=== PATIENT | female | born 1950 | race Caucasian/White ===

== ENCOUNTER 2018-03-16 14:07 | Emergency (ER) | payer MEDICARE, MEDICAID ==
[~2018-03-16] VITALS: Ht 152.4 cm; Wt 40.7 kg
[~2018-03-16 14:07] MED LIST: BENZ1TAB10 PO; BUPR-93 PO; DIPH50CA20 PO; FLUO-126 PO; LORA1TAB3 PO; OLAN20TA2 PO; PERP4TAB10 PO
[2018-03-16] MEDS ORDERED: ASPI-556 PO (16:11)
[2018-03-16] MEDS ORDERED: QUET100T PO (16:11)
[2018-03-16] MEDS ORDERED: TRAZ-220 PO (16:11)
[2018-03-16] MEDS ORDERED: CARB1TAB42 PO (16:11)
[2018-03-16] MEDS ORDERED: DiphenhydrAMINE HCL 50 MG/ML VIAL IVP ONE (16:30)
[2018-03-16] MEDS ORDERED: BENZTROPINE MESYLATE 1 MG/ML 2 ML VIAL IVP ONE (16:30)
[2018-03-16 16:40] LABS: GLUCOSE,POINT OF CARE 97 MG/DL (70-110)
[2018-03-16] MEDS ORDERED: LORazepam 2 MG/ML VIAL IVP ONE (16:45)
[2018-03-16 19:24] VITALS: BP 118/69
== END 2018-03-16 19:25 | disposition home or self-care (01) ==
LOC: EMS 14:07
DX: G24.9 Dystonia, unspecified (principal); J45.909 Unspecified asthma, uncomplicated; F32.9 Major depressive disorder, single episode, unspecified; Z79.82 Long term (current) use of aspirin
CPT/HCPCS: 82948; 82962; 96374; 96375; 99283; J0515; J1200; J2060

== ENCOUNTER 2018-09-22 16:36 | Emergency (ER) | payer MEDICARE, MEDICAID ==
[~2018-09-22] VITALS: Ht 152.4 cm; Wt 53.6 kg
[~2018-09-22 16:36] MED LIST changes: +ASPI-556 PO; -BENZ1TAB10 PO; -BUPR-93 PO; +CARB1TAB42 PO; -DIPH50CA20 PO; -LORA1TAB3 PO; -OLAN20TA2 PO; -PERP4TAB10 PO; +QUET100T PO; +TRAZ-220 PO
[2018-09-22] MEDS ORDERED: ACETAMINOPHEN 325 MG TABLET PO ONE (19:15)
[2018-09-22 19:37] LABS: BASOPHILS % (AUTO) 1.1 % (0.0-2.0); EOSINOPHILS % (AUTO) 0.9 % (1.0-6.0); HEMATOCRIT 40.2 % (36-46); HEMOGLOBIN 13.3 g/dL (12.0-16.0); LYMPHOCYTES # (AUTO) 1.6 K/uL (1.0-4.8); LYMPHOCYTES % (AUTO) 26.1 % (22.0-44.0); MEAN CORPUSCULAR HEMOGLOBIN 30.7 pg (26.0-34.0); MEAN CORPUSCULAR HGB CONC 33.2 G/dL (31.0-37.0); MEAN CORPUSCULAR VOLUME 92 fL (80-100); MONOCYTES # (AUTO) 0.5 K/uL (0.1-1.0); MONOCYTES % (AUTO) 8.5 % (2.0-9.0); NEUTROPHILS % (AUTO) 63.4 % (40.0-70.0); PLATELET COUNT (AUTO) 309 K/uL (150-450); RED BLOOD CELL COUNT(AUTO) 4.35 MIL/uL (4.00-5.20)
[2018-09-22 19:47] LABS: ANION GAP 12 mmol/L (8-16); CALCIUM, TOTAL 9.9 mg/dL (8.8-10.5); CARBON DIOXIDE 25 mmol/L (22-29); CHLORIDE 103 mmol/L (98-107); CREATININE 0.61 mg/dL (0.60-1.30); GLOMERULAR FILTR. RATE CALC > 60 mL/min (>60); GLUCOSE,RANDOM 157 mg/dL (70-110); POTASSIUM 3.8 mmol/L (3.5-5.1); SODIUM SERUM 140 mmol/L (136-145); UREA NITROGEN, BLOOD 19 mg/dL (7-18)
[2018-09-22 19:53] LABS: ALBUMIN 3.9 g/dL (3.4-5.0); ALKALINE PHOSPHATASE 87 U/L (46-116); ASPARTATE AMINOTRANSFERASE 13 U/L (15-37); BILIRUBIN,TOTAL 0.8 mg/dL (0.1-1.0)
[2018-09-22 20:03] LABS: AMPHET/METH SCREEN,URINE NEGATIVE (NEGATIVE); BARBITURATE SCREEN, URINE NEGATIVE (NEGATIVE); BENZODIAZEPINES SCREEN,URINE NEGATIVE (NEGATIVE); CANNABINOID SCREEN,URINE NEGATIVE (NEGATIVE); COCAINE SCREEN,URINE NEGATIVE (NEGATIVE); METHADONE SCREEN, URINE NEGATIVE (NEGATIVE); OPIATE SCREEN,URINE NEGATIVE (NEGATIVE)
[2018-09-22 20:05] LABS: ALANINE AMINOTRANSFERASE 5 U/L (12-78)
[2018-09-22 20:05] LABS: PHENCYCLIDINE SCREEN,URINE NEGATIVE (NEGATIVE)
[2018-09-22 21:10] VITALS: BP 105/62
[2018-09-22 21:20] LABS: APPEARANCE,URINE TURBID (CLEAR); GLUCOSE, URINE (UA) NEGATIVE (NEGATIVE); KETONES,URINE 40 mg/dL (NEGATIVE); LEUKOCYTE ESTERASE ,URINE MODERATE (NEGATIVE); NITRATE,URINE POSITIVE (NEGATIVE); OCCULT BLOOD,URINE NEGATIVE (NEGATIVE); PROTEIN,URINE TRACE (NEGATIVE)
[2018-09-22 21:21] LABS: BILIRUBIN,URINE PRELIM. POSITIVE (NEGATIVE)
[2018-09-22 21:28] LABS: BACTERIA,URINE Many /HPF (None Seen); RBC,URINE None Seen /HPF (0-2); SQUAMOUS EPITHELIAL CELL,UR Few /LPF (None Seen)
[2018-09-22 21:29] LABS: CALCIUM OXALATE CRYSTALS,UR Moderate /LPF (None Seen)
[2018-09-22] MEDS ORDERED: CefTRIAXone SODIUM 1 GM/VIAL IM ONE (21:30)
[2018-09-22] MEDS ORDERED: LIDOCAINE/PF 1% 2 ML VIAL IM ONE (21:30)
== END 2018-09-22 21:51 | disposition left against medical advice (07) ==
LOC: EMS 16:37
DX: F20.9 Schizophrenia, unspecified (principal); N39.0 Urinary tract infection, site not specified; F17.210 Nicotine dependence, cigarettes, uncomplicated; F41.9 Anxiety disorder, unspecified; F32.9 Major depressive disorder, single episode, unspecified
CPT/HCPCS: 36415; 71045; 80053; 80307; 81001; 85025; 87086; 96372; 99284; G0480; J0696; J3490